=== PATIENT | female | born 1995 | race Caucasian/White ===

== ENCOUNTER 2018-12-30 14:36 | Emergency (ER) | payer SELFPAY ==
[~2018-12-30] VITALS: Ht 152.4 cm; Wt 86.6 kg
[2018-12-30 14:50] VITALS: BP 126/79; Ht 152.4 cm; Wt 86.6 kg
[2018-12-30 15:15] LABS: BASOPHIL % 0.4 % (0-2); PLATELET COUNT 373 x10^3mcL (130-400); RED CELL DISTRIBUTION WIDTH 12.6 % (11.5-14.5)
[2018-12-30 15:25] LABS: CALCIUM 8.9 mg/dL (8.5-10.1); CARBON DIOXIDE 27.7 mmol/L (21-32); CHLORIDE SERUM 103 mmol/L (98-107); CREATININE SERUM 0.6 mg/dL (0.6-1.0); GFR1 > 60 mL/min; GLUCOSE SERUM 106 mg/dL (74-106); POTASSIUM SERUM 3.7 mmol/L (3.5-5.1); SODIUM SERUM 139 mmol/L (136-145)
[2018-12-30 15:29] LABS: ALBUMIN 3.7 g/dL (3.4-5.0); ALKALINE PHOSPHATASE 108 U/L (46-116); ALT/SGPT 75 U/L (14-59); AST/SGOT 44 U/L (15-37)
[2018-12-30 15:34] LABS: TOTAL PROTEIN, SERUM 8.4 g/dL (6.4-8.2)
== END 2018-12-30 16:08 | disposition home or self-care (01) ==
LOC: ED 14:36
DX: R19.7 Diarrhea, unspecified (principal); R11.2 Nausea with vomiting, unspecified; R10.9 Unspecified abdominal pain; Z86.19 Personal history of other infectious and parasitic diseases
CPT/HCPCS: 36415